=== PATIENT | female | born 1950 | race African-American/Black ===

== ENCOUNTER 2023-05-26 08:48 | Emergency (ER) | payer OTHER ==
[~2023-05-26] VITALS: Ht 167.6 cm; Wt 86.0 kg
[2023-05-26 08:56] VITALS: TEMP 98.2; O2SAT 98
[2023-05-26 09:30] VITALS: BP 168/114; PULSE 77; RESP 18
[2023-05-26] MEDS ORDERED: IBUPROFEN 600MG TABLET PO ONE (09:30)
[2023-05-26] MEDS ORDERED: IBUP-2029 MT (11:04)
== END 2023-05-26 11:53 | disposition home or self-care (01) ==
LOC: ER 08:48
DX: S80.02XA Contusion of left knee, initial encounter (principal); S70.02XA Contusion of left hip, initial encounter; W01.0XXA Fall on same level from slipping, tripping and stumbling without subsequent striking against object, initial encounter; Y93.89 Activity, other specified; Y92.89 Other specified places as the place of occurrence of the external cause; Y99.8 Other external cause status
CPT/HCPCS: 73502; 73560; 73590; 99284